=== PATIENT | female | born 1955 | race Caucasian/White ===

== ENCOUNTER → 2018-12-28 | Outpatient (CLI) | payer BC | LOC: COL.RAD 13:00 | DX: H90.A32 Mixed conductive and sensorineural hearing loss, unilateral, left ear with restricted hearing on the contralateral side (principal) ==

== ENCOUNTER 2019-04-12 09:45 | Outpatient (RCR) | payer BC | END 2019-05-20 18:13 | disposition home or self-care (01) | LOC: WSPT 09:45 | DX: R42 Dizziness and giddiness (principal) ==